=== PATIENT | male | born 1945 | race African-American/Black ===

== ENCOUNTER 2016-12-06 07:25 | Inpatient (IN) | payer MEDICARE ==
[2016-11-28 12:22] LABS: HEMATOCRIT 41.4 % (42.0-52.0); HEMOGLOBIN 13.7 gm/dL (14.0-18.0); MCH 29.6 pg (26.0-34.0); MCHC 33.1 g/dL (28.0-37.0); MCV 89.4 fL (80.0-100.0); RBC 4.63 mil/uL (4.50-6.00); RDW 13.4 % (10.5-14.5); URINE BILIRUBIN NEGATIVE (Negative); URINE BLOOD TRACE (Negative); URINE COLOR YELLOW; URINE GLUCOSE-RANDOM* NEGATIVE (Negative); URINE KETONES NEGATIVE (Negative); URINE LEUKOCYTES-REFLEX 1+ (Negative); URINE PROTEIN (DIPSTICK) NEGATIVE (Negative); URINE SPECIFIC GRAVITY 1.015 (1.003-1.035); URINE UROBILINOGEN 0.2 E.U./dl (0.2-1.0); WBC 5.2 thou/uL (4.0-11.0)
[2016-11-28 12:30] LABS: CASTS None Seen /LPF (None Seen); CRYSTALS None Seen /LPF (None Seen); SQUAMOUS 0-3 Few /LPF (0-3)
[2016-11-28 12:31] LABS: URINE RBC 0-2 Rare /HPF (0-2); URINE WBC-REFLEX 0-5 Rare /HPF (0-5)
[2016-11-28 12:35] LABS: ALBUMIN 3.7 g/dL (3.4-5.0); CALCIUM 8.8 mg/dL (8.5-10.1); CREATININE 1.4 mg/dL (0.7-1.3)
[2016-11-28 12:36] LABS: PROTIME 10.7 Seconds (9.3-11.4)
[2016-12-06] VITALS (8 sets, daily range): BP systolic 12–145; BP diastolic 52–71
[~2016-12-06] VITALS: Ht 188 cm; Wt 125.2 kg
[~2016-12-06 07:25] MED LIST: ALLOPURINOL 30300 M2 PO; ASPIR 8181 MG PO; COLACE 100 MG100 MG PO; COLACE100 MG PO; HYDROCODONE-APA1 TA1 PO; KEFLEX500 MG PO; LIPITOR10 MG PO; NO HOME MEDS; NORCO 5-325 TA1 EACH PO; NORVASC 5 MG TAB5 MG PO; PLAVIX 75 MG TA75 M1 PO; PRINIVIL20 M1 PO; SENNA PO; VIACTIV SOFT C1 EACH PO; XARELTO10 MG PO
[2016-12-07 00:21] VITALS: BP 135/54
[2016-12-07 04:37] LABS: HEMATOCRIT 37.7 % (42.0-52.0); HEMOGLOBIN 12.4 gm/dL (14.0-18.0); MCH 29.4 pg (26.0-34.0); RBC 4.23 mil/uL (4.50-6.00); RDW 13.6 % (10.5-14.5); WBC 9.6 thou/uL (4.0-11.0)
[2016-12-07 04:40] VITALS: BP 138/62
[2016-12-07 08:49] VITALS: BP 91/60
[2016-12-07 15:05] VITALS: BP 91/60
[2016-12-07 15:25] VITALS: BP 113/52
[2016-12-07 20:00] VITALS: BP 109/59
[2016-12-08 04:00] VITALS: BP 109/56
[2016-12-08 06:35] LABS: HEMATOCRIT 36.2 % (42.0-52.0); HEMOGLOBIN 12.1 gm/dL (14.0-18.0); MCH 29.8 pg (26.0-34.0); MCHC 33.5 g/dL (28.0-37.0); MCV 89.1 fL (80.0-100.0); RBC 4.06 mil/uL (4.50-6.00); RDW 13.6 % (10.5-14.5); WBC 8.5 thou/uL (4.0-11.0)
[2016-12-08 09:01] VITALS: BP 122/56
[2016-12-08 13:38] VITALS: BP 91/60
[2016-12-08 19:30] VITALS: BP 145/54
[2016-12-09 04:20] VITALS: BP 140/54
[2016-12-09] MEDS ORDERED: MS CONTIN 30 MG30 M1 PO (06:53)
[2016-12-09] MEDS ORDERED: XARELTO10 MG PO (06:53)
[2016-12-09] MEDS ORDERED: PERCOCET 10-321 EACH PO (06:54)
[2016-12-09 07:11] VITALS: BP 146/60
[2016-12-09 09:50] VITALS: BP 91/60
[2016-12-09 12:07] LABS: HEMATOCRIT 33.9 % (42.0-52.0); HEMOGLOBIN 11.3 gm/dL (14.0-18.0); MCH 29.5 pg (26.0-34.0); MCHC 33.3 g/dL (28.0-37.0); MCV 88.5 fL (80.0-100.0); RBC 3.83 mil/uL (4.50-6.00); WBC 10.1 thou/uL (4.0-11.0)
== END 2016-12-09 12:40 | disposition home health service (06) | DRG 470 ==
LOC: TBA 07:25 → 5S 07:25 → PRE 08:22 → 5S 12:46
PROVIDERS: Orthopaedic Surgery
PROC: 0SRD0J9 Replacement of Left Knee Joint with Synthetic Substitute, Cemented, Open Approach (ICD-10-PCS; principal; 2016-12-06)
DX: M17.12 Unilateral primary osteoarthritis, left knee (principal); I10 Essential (primary) hypertension; Z96.651 Presence of right artificial knee joint; E78.00 Pure hypercholesterolemia, unspecified; E66.9 Obesity, unspecified; Z95.5 Presence of coronary angioplasty implant and graft; Z68.35 Body mass index [BMI] 35.0-35.9, adult
CPT/HCPCS: 10785; 50010; 50101; 50415; 50612; 50954; 51130; 51225; 51320; 51412; 51771; 52001; 52282; 53000; 53078; 53364; 56525; 56527; 62110; 62900; 64041; 64043; 70005

== ENCOUNTER 2017-01-02 16:56 | Inpatient (IN) | payer MEDICARE ==
[~2017-01-02] VITALS: Ht 188 cm; Wt 119.2 kg
--- NOTE | ~2017-01-02 | HC ---
[facility] [place] [address] CONSULTATION Name: MARZENA RAMSEY Qing Room #: 315-P [facility].#: [id number] Admission: 01/02/17 Attend Phys: Leonardo Burns MD Discharge: 01/05/17 Date of : 43 Report #: [id number] THIS REPORT FOR: //name// CC: Roman Burns DATE OF SERVICE: 01/02/2017 CHIEF COMPLAINT: Left knee pain. BRIEF HISTORY: A 71-year-old gentleman who underwent left total knee replacement approximately one month ago. He has had discomfort in the knee for which he has been taking oxycodone. He related that his pain worsened today and so he presented to the Emergency Department. He was noted in the Emergency Department to have an elevated creatinine as well as significant pain that required IV pain medication. He did have an ultrasound performed which was negative for DVT which did show swelling and a moderate joint effusion. He relates this pain is similar today as it was 2 weeks ago but worsened today. PAST MEDICAL HISTORY: Significant for coronary artery disease, he has had cardiac stents; hypertension and hypercholesterolemia. PAST SURGICAL HISTORY: Includes right rotator cuff repair and right total knee replacement. MEDICATION: On admission include lisinopril, atorvastatin, amlodipine, Plavix, aspirin, Silver Star, Colace, allopurinol and calcium carbonate. ALLERGIES: None known. PHYSICAL EXAMINATION: VITAL SIGNS: He is afebrile. EXTREMITIES: Examination of his left knee demonstrates range of motion from approximately minus 10 to about 60 degrees after which he is guarding. His wound appears benign. He does have [address] There is no drainage or erythema. No pathologic laxity. His foot is warm, but I am unable to palpate pedal pulses. X-ray of his left knee demonstrates that his implant is in good position with no evidence of loosening. Calcified loose body posteriorly. His white count is normal. He is anemic with hemoglobin of 9.3. He is also noted to have an elevated creatinine since discharge at 4.0 on admission. He did have a Doppler study performed of left lower extremity which demonstrates no DVT. Matias cyst noted. [facility] [address] [place] [address] CONSULTATION Name: MARZENA RAMSEY Room #: 315-P [facility] .[facility].#: [id number] Admission: 01/02/17 Attend Phys: Leonardo Burns MD Discharge: 01/05/17 Date of : 43 Report #: [id number] IMPRESSION: Left knee pain post total knee arthroplasty. PLAN: We plan to do arterial Dopplers as I am unable to palpate pedal pulses. We will also plan to attempt an aspiration of the knee for analysis to ensure no sepsis of the joint. If sepsis is indicated, this will likely require I and D. Discussed his condition at length with the patient. <ELECTRONICALLY SIGNED> By: Altaf Benjamin MD 01/31/17 1411 0728 Altaf Benjamin MD /isela
--- NOTE | ~2017-01-02 | EKG ---
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
[2017-01-02 16:56] VITALS: BP 116/53
[~2017-01-02 16:56] MED LIST changes: +MS CONTIN 30 MG30 M1 PO; +PERCOCET 10-321 EACH PO
[2017-01-02 18:33] LABS: ABSOLUTE NEUTROPHILS 7.1 thou/uL (1.4-8.2); BASOPHILS 0.5 % (0.0-2.0); EOSINOPHILS 0.5 % (0.0-3.0); HEMATOCRIT 31.1 % (42.0-52.0); HEMOGLOBIN 10.4 gm/dL (14.0-18.0); LYMPHOCYTES 10.5 % (24.0-44.0); MANUAL DIFF NO; MCHC 33.4 g/dL (28.0-37.0); MCV 86.9 fL (80.0-100.0); MONOCYTES 9.1 % (1.0-8.0); PLATELET COUNT 303 thou/uL (150-400); POLYS 79.4 % (36.0-66.0); RBC 3.58 mil/uL (4.50-6.00); RDW 14.5 % (10.5-14.5); WBC 8.9 thou/uL (4.0-11.0)
[2017-01-02 18:41] LABS: CALCIUM 9.7 mg/dL (8.5-10.1); POTASSIUM 5.3 mmol/L (3.5-5.1)
[2017-01-02 18:46] LABS: APTT 30.7 Seconds (24.5-32.8); INR 1.1; PROTIME 11.2 Seconds (9.3-11.4)
[2017-01-02] MEDS ORDERED: PLAVIX 75 MG TA75 M1 PO (19:33)
[2017-01-02 19:42] VITALS: BP 121/61
[2017-01-02 20:03] VITALS: BP 104/56; BP 121/61
[2017-01-02 21:00] VITALS: BP 101/50
[2017-01-03] VITALS (7 sets, daily range): BP systolic 9–120; BP diastolic 46–61
[2017-01-03 06:41] LABS: HEMATOCRIT 27.9 % (42.0-52.0); HEMOGLOBIN 9.3 gm/dL (14.0-18.0); MCH 28.9 pg (26.0-34.0); MCHC 33.5 g/dL (28.0-37.0); MCV 86.3 fL (80.0-100.0); RBC 3.23 mil/uL (4.50-6.00); RDW 14.5 % (10.5-14.5); WBC 5.8 thou/uL (4.0-11.0)
[2017-01-03 06:51] LABS: ALBUMIN 2.9 g/dL (3.4-5.0); CALCIUM 9.3 mg/dL (8.5-10.1); CREATININE 3.3 mg/dL (0.7-1.3); PHOSPHORUS 4.7 mg/dL (2.5-4.9); POTASSIUM 4.8 mmol/L (3.5-5.1)
[2017-01-04 04:00] VITALS: BP 115/54
[2017-01-04 04:52] LABS: CALCIUM 9.4 mg/dL (8.5-10.1); POTASSIUM 4.9 mmol/L (3.5-5.1)
[2017-01-04 04:53] LABS: HEMATOCRIT 28.6 % (42.0-52.0); HEMOGLOBIN 9.5 gm/dL (14.0-18.0); MCH 28.8 pg (26.0-34.0); MCHC 33.2 g/dL (28.0-37.0); MCV 86.8 fL (80.0-100.0); RBC 3.29 mil/uL (4.50-6.00); RDW 14.3 % (10.5-14.5); WBC 5.7 thou/uL (4.0-11.0)
[2017-01-04 04:56] LABS: CREATININE 1.6 mg/dL (0.7-1.3)
[2017-01-04 08:10] VITALS: BP 124/58
[2017-01-04 15:49] VITALS: BP 106/51
[2017-01-04 19:48] VITALS: BP 123/55
[2017-01-05 04:35] VITALS: BP 111/58
[2017-01-05 08:54] VITALS: BP 109/59
[2017-01-05 12:00] LABS: CALCIUM 9.3 mg/dL (8.5-10.1); CREATININE 1.3 mg/dL (0.7-1.3); POTASSIUM 4.8 mmol/L (3.5-5.1)
[2017-01-05] MEDS ORDERED: PLAVIX 75 MG TA75 M1 PO (13:50)
[2017-01-05 14:26] VITALS: BP 109/59
[2017-01-05 15:08] VITALS: BP 109/59
== END 2017-01-05 16:09 | disposition home health service (06) | DRG 564 ==
LOC: ER 16:56 → 3N 19:24 → EROBS 19:24 → 3N 20:12
PROVIDERS: Hospitalist; Internal Medicine; Nurse Practitioner Family; Physician Assistant
DX: M25.462 Effusion, left knee (principal); N17.0 Acute kidney failure with tubular necrosis; I10 Essential (primary) hypertension; E78.00 Pure hypercholesterolemia, unspecified; Z96.651 Presence of right artificial knee joint; E87.5 Hyperkalemia; I25.10 Atherosclerotic heart disease of native coronary artery without angina pectoris; E78.5 Hyperlipidemia, unspecified; N18.9 Chronic kidney disease, unspecified; Z79.82 Long term (current) use of aspirin; Z79.899 Other long term (current) drug therapy; Z95.5 Presence of coronary angioplasty implant and graft
CPT/HCPCS: 10094

== ENCOUNTER 2017-11-12 07:12 | Emergency (ER) | payer MEDICARE ==
[~2017-11-12] VITALS: Ht 188 cm; Wt 120.2 kg
[2017-11-12] MEDS ORDERED: PREDNISONE 20 M20 MG PO (07:51)
[2017-11-12] MEDS ORDERED: MORPHINE SULFAT15 M3 PO (07:58)
[2017-11-12 08:22] VITALS: BP 154/74
== END 2017-11-12 08:26 | disposition home or self-care (01) ==
LOC: ER 07:12
DX: M10.9 Gout, unspecified (principal); I10 Essential (primary) hypertension; M19.90 Unspecified osteoarthritis, unspecified site; E78.00 Pure hypercholesterolemia, unspecified; Z96.651 Presence of right artificial knee joint

== ENCOUNTER 2017-12-14 17:02 | Emergency (ER) | payer MEDICARE ==
[~2017-12-14] VITALS: Ht 188 cm; Wt 120.2 kg
[~2017-12-14 17:02] MED LIST changes: +MORPHINE SULFAT15 M3 PO; +PREDNISONE 20 M20 MG PO
[2017-12-14] MEDS ORDERED: NORCO 5-325 TA1 EACH PO (18:40)
[2017-12-14 18:54] VITALS: BP 155/64
== END 2017-12-14 18:56 | disposition home or self-care (01) ==
LOC: ER 17:02
DX: S16.1XXA Strain of muscle, fascia and tendon at neck level, initial encounter (principal); I10 Essential (primary) hypertension; E78.00 Pure hypercholesterolemia, unspecified; M19.90 Unspecified osteoarthritis, unspecified site; Z96.651 Presence of right artificial knee joint; Z95.811 Presence of heart assist device; V49.49XA Driver injured in collision with other motor vehicles in traffic accident, initial encounter; Y93.89 Activity, other specified; Y92.89 Other specified places as the place of occurrence of the external cause; Y99.8 Other external cause status